=== PATIENT | female | born 1970 | race Caucasian/White ===

== ENCOUNTER → 2017-01-18 | Outpatient (CLI) | payer OTHER ==
[~2017-01-18] MED LIST: COLACE 100MG C100 MG PO; IBUPROFEN600 MG PO; IRON325 M1 PO; LISINOPRIL-HCT1 EACH PO; NAPROXEN500 MG PO; NORCO 5-325 TA1 EACH PO
== END ==
LOC: MAMO 10:20
DX: Z12.31 Encounter for screening mammogram for malignant neoplasm of breast (principal)
CPT/HCPCS: G0202

== ENCOUNTER → 2017-02-09 | Outpatient (CLI) | payer OTHER | LOC: EXRD 13:22 → US 13:22 → EXRD 14:00 | DX: M81.0 Age-related osteoporosis without current pathological fracture (principal); R92.2 Inconclusive mammogram | CPT/HCPCS: 77080 ==

== ENCOUNTER → 2017-02-17 | Outpatient (CLI) | payer OTHER | LOC: HEART 5 02-10 08:45 | DX: I49.3 Ventricular premature depolarization (principal); R00.2 Palpitations | CPT/HCPCS: 78452; 93306; A9502 ==

== ENCOUNTER → 2017-02-18 | Outpatient (CLI) | payer OTHER | LOC: MAMO 10:00 → US 11:00 | DX: R92.2 Inconclusive mammogram (principal); N60.02 Solitary cyst of left breast | CPT/HCPCS: 76641-LT; G0206 ==

== ENCOUNTER → 2017-02-24 | Outpatient (CLI) | payer OTHER | LOC: KOH-I 13:51 | DX: M54.5 Low back pain (principal); M51.26 Other intervertebral disc displacement, lumbar region | CPT/HCPCS: 72148 ==

== ENCOUNTER → 2021-09-27 | Outpatient (CLI) | payer OTHER ==
[~2021-09-27] MED LIST changes: +NAPROSYN500 MG PO
[2021-09-27 11:21] LABS: HEMOGLOBIN 17.1 gm/dl (12.3-15.3); RED BLOOD COUNT 5.39 M/UL (4.00-5.10)
[2021-09-27 11:43] LABS: BUN/CREATININE RATIO 24 (0-10)
== END ==
LOC: LAB 10:47
PROVIDERS: Nurse Practitioner Family
DX: Z00.00 Encounter for general adult medical examination without abnormal findings (principal); E55.9 Vitamin D deficiency, unspecified; R53.83 Other fatigue; E78.5 Hyperlipidemia, unspecified; I10 Essential (primary) hypertension; D50.9 Iron deficiency anemia, unspecified; M25.50 Pain in unspecified joint; R63.5 Abnormal weight gain; R73.9 Hyperglycemia, unspecified
CPT/HCPCS: 80053; 80061; 81001; 82607; 83036; 84439; 84443; 84481; 85027

== ENCOUNTER → 2022-05-26 | Outpatient (CLI) | payer OTHER | LOC: KOH-I 15:40 | DX: M54.50 Low back pain, unspecified (principal); M47.816 Spondylosis without myelopathy or radiculopathy, lumbar region; M51.36 Other intervertebral disc degeneration, lumbar region | CPT/HCPCS: 72100 ==